=== PATIENT | female | born 1985 | race Caucasian/White ===

== ENCOUNTER 2017-11-25 00:39 | Emergency (ER) | payer BC ==
[2017-11-25] MEDS ORDERED: Ondansetron 4 MG/2 ML SDV IVPUSH ONE (01:31)
[2017-11-25] MEDS ORDERED: Ketorolac 30 MG/ML SDV IVPUSH ONE (01:31)
[2017-11-25] MEDS ORDERED: Sodium Chloride 0.9% 1,000 ML IV ONE (01:31)
[2017-11-25] MEDS ORDERED: Alum Hydroxide/Mag Hydroxide 30 ML, Lidocaine 2% 15 ML PO ONE ×2 (01:39)
--- NOTE | 2017-11-25 01:40 | EDM.PDOC ---
ED HPI GENERAL MEDICAL PROBLEM - General Chief Complaint: Abdominal Pain Stated Complaint: ABD PAIN Time Seen by Provider: 11/25/17 01:20 Source of Information: Reports: Patient History Limitations: Reports: No Limitations - History of Present Illness INITIAL COMMENTS - FREE TEXT/NARRATIVE: c/o upper abd pain x 9h h/o IBS, to ED x 2 in [place] with abd pain and dx with gastorenteritis h/o c/s x 1 and endometrioma 2007 removed with laparoscope pain continuous, getting worse, no radiation some N & V had diarrhea x 6, onset 3h ago, soft and formed and brown at chicken sandwich for lunch in [place] at noon, at a little spaghetti at 4 PM when pain started, only water this 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 with and 2 children who are not ill no f/c/d, no GRACIA, no cough did not get flu vax this yr moved back locally 1m ago Treatments RCIS: Reports: Other Medication(s) Upper abdomen Pain Score (Numeric/FACES): 7 - Related Data Allergies Allergy/AdvReac Type Severity Reaction Status Date / Time erythromycin base Allergy Stomach Verified 11/25/17 01:08 [From Erythrocin] Upset Home Meds: Home Meds Dicyclomine HCl [Bentyl] 10 mg PO QID #28 capsule 11/25/17 [Rx] Magnesium 250 mg PO BID 11/25/17 [History] ED ROS GENERAL - Review of Systems Review Of Systems: See Below Constitutional: Reports: No Symptoms. Denies: Fever, Chills, Weakness, Diaphoresis HEENT: Reports: No Symptoms Respiratory: Reports: No Symptoms Cardiovascular: Reports: No Symptoms Endocrine: Reports: No Symptoms GI/Abdominal: Reports: Abdominal Pain, Diarrhea, Nausea, Vomiting : Reports: No Symptoms Musculoskeletal: Reports: No Symptoms Skin: Reports: No Symptoms Neurological: Reports: No Symptoms Psychiatric: Reports: No Symptoms Hematologic/Lymphatic: Reports: No Symptoms Immunologic: Reports: No Symptoms ED EXAM, GI/ABD - Physical Exam Exam: See Below Exam Limited By: No Limitations General Appearance: Alert, WD/WN, Mild Distress, Other (thin) Eyes: Bilateral: Normal Appearance, EOMI Ears: Normal External Exam Nose: Normal Inspection, Normal Mucosa, No Blood Throat/Mouth: Normal Inspection, Normal Lips, Normal Teeth, Normal Gums, Normal Oropharynx, Normal Voice, No Airway Compromise Head: Atraumatic, Normocephalic Neck: Normal Inspection, Supple, Non-Tender, Full Range of Motion Respiratory/Chest: No Respiratory Distress, Lungs Clear, Normal Breath Sounds, No Accessory Muscle Use, Chest Non-Tender Cardiovascular: Regular Rate, Rhythm, No Edema, No Gallop, No Murmur, No Rub GI/Abdominal Exam: Normal Bowel Sounds, Soft, No Organomegaly, No Distention, No Mass, Other (nl to inc'd BS x 6, thin and soft abd, ND, easily palpable aorta of nl dimension, slight tender in suprapubic area and LLQ, NT across upper abd and at epigastrium and Henry's point, perhaps slight tender at periumbilical area, no HSM) Back Exam: Normal Inspection, Full Range of Motion, NT Extremities: Normal Inspection, Normal Range of Motion, Non-Tender, Normal Capillary Refill, No Pedal Edema Neurological: Alert, Oriented, CN II-XII Intact, Normal Cognition, No Motor/ Sensory Deficits Psychiatric: Normal Affect, Normal Mood Skin Exam: Warm, Dry, Intact, Normal Color, No Rash Lymphatic: No Adenopathy Course - Vital Signs Last Recorded V/S: Last Vital Signs Temp 36.7 C 11/25/17 00:55 Pulse 60 11/25/17 00:55 Resp 20 11/25/17 00:55 BP 101/58 L 11/25/17 00:55 Pulse Ox 100 11/25/17 00:55 - Orders/Labs/Meds Orders: Active Orders 24 hr Category Date Time Status LIPASE [REF] Stat Lab 11/25/17 01:50 Received Labs: Laboratory Tests 11/25/17 11/25/17 11/25/17 Range/Units 01:50 01:50 01:50 WBC 7.3 (4.5-12.0) X10-3/uL RBC 3.84 (3.23-5.20) x10(6)uL Hgb 11.2 L (11.5-15.5) g/dL Hct 33.7 (30.0-51.3) % MCV 87.8 (80-96) fL MCH 29.1 (27.7-33.6) pg MCHC 33.2 (32.2-35.4) g/dL RDW 11.8 (11.5-15.5) % Plt Count 252 (125-369) X10(3)uL MPV 7.9 (7.4-10.4) fL Neut % (Auto) 74.3 (46-82) % Lymph % (Auto) 17.7 (13-37) % [place] % (Auto) 7.2 (4-12) % Eos % (Auto) 1 (1.0-5.0) % Baso % (Auto) 0 (0-2) % Neut # (Auto) 5.5 (1.6-8.3) # Lymph # (Auto) 1.3 (0.6-5.0) # [place] # (Auto) 0.5 (0.0-1.3) # Eos # (Auto) 0.0 (0.0-0.8) # Baso # (Auto) 0.0 (0.0-0.2) # Sodium 140 (135-145) mmol/L Potassium 4.2 (3.5-5.3) mmol/L Chloride 104 (100-110) mmol/L Carbon Dioxide 29 (21-32) mmol/L BUN 10 (7-18) mg/dL Creatinine 0.6 (0.55-1.02) mg/dL Est Cr Clr Drug Dosing 113.52 mL/min Estimated GFR (MDRD) > 60 (>60) BUN/Creatinine Ratio 16.7 (9-20) Glucose 120 H (80-116) mg/dL Calcium 8.5 L (8.6-10.2) mg/dL Total Bilirubin 0.3 (0.1-1.3) mg/dL AST 12 (5-25) IU/L ALT 16 (12-36) U/L Alkaline Phosphatase 57 (56-112) IU/L C-Reactive Protein 2.4 H (0.5-0.9) mg/dL Total Protein 6.7 (6.0-8.0) g/dL Albumin 3.3 L (3.5-5.2) g/dL Globulin 3.4 g/dL Albumin/Globulin Ratio 1.0 Amylase (25-115) U/L Urine Color (YELLOW) Urine Appearance (CLEAR) Urine pH (5.0-6.5) Ur Specific [place] (1.010-1.025) Urine Protein (NEGATIVE) mg/dL Urine Glucose (UA) (NEGATIVE) mg/dL Urine Ketones (NEGATIVE) mg/dL Urine Occult Blood (NEGATIVE) Urine Nitrite (NEGATIVE) Urine Bilirubin (NEGATIVE) Urine Urobilinogen (NEGATIVE) mg/dL Ur Leukocyte Esterase (NEGATIVE) Urine RBC (0) Urine WBC (0) Ur Squamous Epith Cells (NS,R,O) Urine Bacteria (NS) 11/25/17 11/25/17 Range/Units 01:50 02:40 WBC (4.5-12.0) X10-3/uL RBC (3.23-5.20) x10(6)uL Hgb (11.5-15.5) g/dL Hct (30.0-51.3) % MCV (80-96) fL MCH (27.7-33.6) pg MCHC (32.2-35.4) g/dL RDW (11.5-15.5) % Plt Count (125-369) X10(3)uL MPV (7.4-10.4) fL Neut % (Auto) (46-82) % Lymph % (Auto) (13-37) % [place] % (Auto) (4-12) % Eos % (Auto) (1.0-5.0) % Baso % (Auto) (0-2) % Neut # (Auto) (1.6-8.3) # Lymph # (Auto) (0.6-5.0) # [place] # (Auto) (0.0-1.3) # Eos # (Auto) (0.0-0.8) # Baso # (Auto) (0.0-0.2) # Sodium (135-145) mmol/L Potassium (3.5-5.3) mmol/L Chloride (100-110) mmol/L Carbon Dioxide (21-32) mmol/L BUN (7-18) mg/dL Creatinine (0.55-1.02) mg/dL Est Cr Clr Drug Dosing mL/min Estimated GFR (MDRD) (>60) BUN/Creatinine Ratio (9-20) Glucose (80-116) mg/dL Calcium (8.6-10.2) mg/dL Total Bilirubin (0.1-1.3) mg/dL AST (5-25) IU/L ALT (12-36) U/L Alkaline Phosphatase (56-112) IU/L C-Reactive Protein (0.5-0.9) mg/dL Total Protein (6.0-8.0) g/dL Albumin (3.5-5.2) g/dL Globulin g/dL Albumin/Globulin Ratio Amylase 59 (25-115) U/L Urine Color Yellow (YELLOW) Urine Appearance Clear (CLEAR) Urine pH 6.5 (5.0-6.5) Ur Specific [place] 1.015 (1.010-1.025) Urine Protein Negative (NEGATIVE) mg/dL Urine Glucose (UA) Normal (NEGATIVE) mg/dL Urine Ketones Negative (NEGATIVE) mg/dL Urine Occult Blood Negative (NEGATIVE) Urine Nitrite Negative (NEGATIVE) Urine Bilirubin Negative (NEGATIVE) Urine Urobilinogen Normal (NEGATIVE) mg/dL Ur Leukocyte Esterase Negative (NEGATIVE) Urine RBC 0-5 (0) Urine WBC 0-5 (0) Ur Squamous Epith Cells Few H (NS,R,O) Urine Bacteria Few H (NS) Meds: Medications Discontinued Medications Generic Name Dose Route Start Last Admin Trade Name Freq PRN Reason Stop Dose Admin Al Hydroxide/Mg Hydroxide 30 0 ml 11/25/17 01:39 11/25/17 01:51 ml/ Lidocaine HCl 15 ml PO 11/25/17 01:40 15 ml ONETIME ONE Administration Sodium Chloride 1,000 mls @ 999 mls/hr 11/25/17 01:31 11/25/17 01:42 Normal Saline IV 11/25/17 02:31 999 mls/hr .BOLUS ONE Administration Ketorolac Tromethamine 30 mg 11/25/17 01:31 11/25/17 01:42 Toradol IVPUSH 11/25/17 01:32 30 mg ONETIME ONE Administration Ondansetron HCl 4 mg 11/25/17 01:31 11/25/17 01:44 Zofran IVPUSH 11/25/17 01:32 4 mg ONETIME ONE Administration - Re-Assessments/Exams Free Text/Narrative Re-Assessment/Exam: 11/25/17 03:11 CBC neg except hgb 11.2, pt says she usually is 14 CMP with glucose 120 and albumin 3.3 CRP 2.4 c/w gastroenteritis vs colitis pt reports her daughter was on TPN x 2y and had diverting ileostomy for eosinophilic Crohn's pt may need a colonoscopy pain dec'd from 8 to 4, still non localizing slight tender in mid abd Departure - Departure Time of Disposition: 03:13 Disposition: Home, Self-Care 01 Condition: Good Clinical Impression: Gastroenteritis, Mild anemia, Elevated C-reactive protein (CRP) - Discharge Information Prescriptions: Dicyclomine HCl [Bentyl] 10 mg PO QID #28 capsule Instructions: Viral Gastroenteritis, Adult, [id number], Colitis Referrals: Akash Perkins MD [Primary Care Provider] - Forms: ED Department Discharge Additional Instructions: For cramping, take dicyclomine 10 mg 1 tab 4 times a day for 7 days. For pain and inflammation, take ibuprofen 200 mg 3 tabs and acetaminophen 500 mg 2 tabs 4 times a day for 7 days. Increase fluids. Soak in warm water for 10 minutes several times a day as needed. Collect 3 stool specimens for Hemoccult cards. See your doctor in 2 days. Return to ED if you feel worse. Call your Physician or Return to Emergency Department if: * Your condition worsens in any way. * You develop fever greater than 100.4. * You have vomitting that does not stop with medications. * You have pain that is not controlled with medications. - My Orders Last 24 Hours: My Active Orders 11/25/17 01:50 LIPASE [REF] Stat - Assessment/Plan Last 24 Hours: My Active Orders 11/25/17 01:50 LIPASE [REF] Stat
[2017-11-25] MEDS ORDERED: Dicyclomine 10 MG Cap PO ONE (03:10)
== END 2017-11-25 03:40 | disposition home or self-care (01) ==
LOC: FB.ED 00:39
DX: K52.9 Noninfective gastroenteritis and colitis, unspecified (principal); D64.9 Anemia, unspecified; R79.82 Elevated C-reactive protein (CRP); Z88.1 Allergy status to other antibiotic agents; Z79.899 Other long term (current) drug therapy
CPT/HCPCS: 36415; 80053; 81001; 82150; 83690; 85025; 86140; 96361; 96374; 96375; 99284; A9270-GY; J1885; J2405; J7040

== ENCOUNTER 2017-11-27 21:23 | Emergency (ER) | payer BC ==
[2017-11-27] MEDS ORDERED: Sodium Chloride 0.9% 1,000 ML IV ONE (21:36)
[2017-11-27] MEDS ORDERED: Ondansetron 4 MG/2 ML SDV IVPUSH ONE (21:36)
--- NOTE | 2017-11-27 21:47 | EDM.PDOC ---
ED HPI GENERAL MEDICAL PROBLEM - General Stated Complaint: ABD PAIN Time Seen by Provider: 11/27/17 21:23 Source of Information: Reports: Patient History Limitations: Reports: No Limitations - History of Present Illness INITIAL COMMENTS - FREE TEXT/NARRATIVE: 32 y.o.w.f came to the ED witth N/V/D and periumbilical abdominal pain. Pt had similar symptoms on 11/25/2017. She was seen on that day here in the ED and received NS, Zofran and Bentyl. Pt denies forceful vomiting. Did not have a GI workup in the past. 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 No blood in stool or vomit. No F/C, pt lost weight, however. No other acute medical issues. BP 110/51 pulse 52 RR 18, O2 sat 100% on RA Temp 36.4 Onset Date: 11/26/17 Onset Time: 16:44 Location: Reports: Abdomen Quality: Reports: Burning, Dull, Same as Previous Episode Severity: Moderate Improves with: Reports: None Worsens with: Reports: Eating Context: Reports: Sick Contact Associated Symptoms: Reports: Nausea/Vomiting, Other (diarrhea) - Related Data Allergies Allergy/AdvReac Type Severity Reaction Status Date / Time erythromycin base Allergy Stomach Verified 11/27/17 23:55 [From Erythrocin] Upset Home Meds: Home Meds Dicyclomine HCl [Bentyl] 10 mg PO QID #28 capsule 11/25/17 [Rx] Magnesium 250 mg PO BID 11/25/17 [History] Past Medical History Gastrointestinal History: Reports: Gastritis, Irritable Bowel Syndrome Musculoskeletal History: Reports: Fracture Neurological History: Reports: Headaches, Chronic - Infectious Disease History Infectious Disease History: Reports: Chicken Pox - Past Surgical History HEENT Surgical History: Reports: Adenoidectomy, Tonsillectomy GI Surgical History: Reports: Colonoscopy Musculoskeletal Surgical History: Reports: Other (See Below) Other Musculoskeletal Surgeries/Procedures:: L 5th digit pinning. Social & Family History - Family History Family Medical History: Noncontributory - Tobacco Use Smoking Status *Q: Never Smoker - Caffeine Use Caffeine Use: Reports: Soda - Recreational Drug Use Recreational Drug Use: No ED ROS GENERAL - Review of Systems Review Of Systems: See Below Constitutional: Reports: No Symptoms HEENT: Reports: No Symptoms Respiratory: Reports: No Symptoms Cardiovascular: Reports: No Symptoms Endocrine: Reports: No Symptoms GI/Abdominal: Reports: Abdominal Pain (periumbilical) : Reports: No Symptoms Musculoskeletal: Reports: No Symptoms Skin: Reports: No Symptoms Neurological: Reports: No Symptoms Psychiatric: Reports: Agitation, Anxiety Hematologic/Lymphatic: Reports: No Symptoms Immunologic: Reports: No Symptoms ED EXAM, GI/ABD - Physical Exam Exam: See Below Exam Limited By: No Limitations General Appearance: Alert, WD/WN, Anxious, Mild Distress Eyes: Bilateral: Normal Appearance Ears: Normal External Exam Nose: Normal Inspection, Normal Mucosa Throat/Mouth: Normal Lips, Normal Gums, No Airway Compromise, Other (dry mucosal mme) Head: Atraumatic, Normocephalic Neck: Normal Inspection, Supple, Non-Tender, Full Range of Motion Respiratory/Chest: No Respiratory Distress, Lungs Clear, Normal Breath Sounds Cardiovascular: Normal Peripheral Pulses, Regular Rate, Rhythm, No Edema GI/Abdominal Exam: Normal Bowel Sounds, No Organomegaly, Tender (periumbilical tenderness) (Female) Exam: Deferred Rectal (Female) Exam: Deferred Back Exam: Normal Inspection, Full Range of Motion Extremities: Normal Inspection, Normal Range of Motion, Non-Tender, No Pedal Edema Neurological: Alert, Oriented, CN II-XII Intact, Normal Cognition, Normal Gait, No Motor/Sensory Deficits Psychiatric: Anxious Skin Exam: Warm, Dry, Intact, Normal Color, No Rash Lymphatic: No Adenopathy Course - Vital Signs Text/Narrative:: 32 y.o.w.f came to the ED witth N/V/D and periumbilical abdominal pain. Pt had similar symptoms on 11/25/2017. She was seen on that day here in the ED and received NS, Zofran and Bentyl. Pt denies forceful vomiting. Did not have a GI workup in the past. 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 No blood in stool or vomit. No F/C, pt lost weight, however. No other acute medical issues. BP 110/51 pulse 52 RR 18, O2 sat 100% on RA Temp 36.4 PE: Cachectic 32 y.o.w.f with N/V and abd. pain and extreme anxious, no family present. Labs: CBC/BMP. UDA, HCG and UA all neg, small bili GLC 117 Impression: Gastroenteritis, Dehydration, perumbilical pain, cachexia. Tx: NS 2 liters, Zofran, Protronix,Toradol. Pt took bentyl [employer] C[employer] TOOL Reexam: Improved, pain was 5/10. She can tolerate it and wanted to go home. Plan: D/C with instructions Last Recorded V/S: Last Vital Signs Temp 36.5 C 11/27/17 23:10 Pulse 48 L 11/27/17 23:10 Resp 16 11/27/17 23:10 BP 109/63 11/27/17 23:10 Pulse Ox 100 11/27/17 23:10 - Orders/Labs/Meds Labs: Laboratory Tests 11/27/17 11/27/17 11/27/17 Range/Units 21:50 21:50 21:50 WBC 8.0 (4.5-12.0) X10-3/uL RBC 3.99 (3.23-5.20) x10(6)uL Hgb 11.7 (11.5-15.5) g/dL Hct 34.9 (30.0-51.3) % MCV 87.4 (80-96) fL MCH 29.4 (27.7-33.6) pg MCHC 33.7 (32.2-35.4) g/dL RDW 11.8 (11.5-15.5) % Plt Count 233 (125-369) X10(3)uL MPV 8.3 (7.4-10.4) fL Neut % (Auto) 66.7 (46-82) % Lymph % (Auto) 22.0 (13-37) % [place] % (Auto) 9.3 (4-12) % Eos % (Auto) 2 (1.0-5.0) % Baso % (Auto) 0 (0-2) % Neut # (Auto) 5.3 (1.6-8.3) # Lymph # (Auto) 1.8 (0.6-5.0) # [place] # (Auto) 0.7 (0.0-1.3) # Eos # (Auto) 0.2 (0.0-0.8) # Baso # (Auto) 0.0 (0.0-0.2) # Sodium 140 (135-145) mmol/L Potassium 3.6 (3.5-5.3) mmol/L Chloride 103 (100-110) mmol/L Carbon Dioxide 28 (21-32) mmol/L BUN 10 (7-18) mg/dL Creatinine 0.7 (0.55-1.02) mg/dL Est Cr Clr Drug Dosing TNP Estimated GFR (MDRD) > 60 (>60) BUN/Creatinine Ratio 14.3 (9-20) Glucose 117 H (80-116) mg/dL Calcium 8.7 (8.6-10.2) mg/dL Magnesium 2.0 (1.8-2.5) mg/dL Total Bilirubin 0.2 (0.1-1.3) mg/dL Direct Bilirubin 0.07 L (0.10-0.20) mg/dL AST 13 (5-25) IU/L ALT 14 D (12-36) U/L Alkaline Phosphatase 61 (56-112) IU/L Total Protein 6.9 (6.0-8.0) g/dL Albumin 3.5 (3.5-5.2) g/dL Amylase 60 (25-115) U/L HCG, Quant < 1 L (<5) mIU/mL Urine Color (YELLOW) Urine Appearance (CLEAR) Urine pH (5.0-6.5) Ur Specific [place] (1.010-1.025) Urine Protein (NEGATIVE) mg/dL Urine Glucose (UA) (NEGATIVE) mg/dL Urine Ketones (NEGATIVE) mg/dL Urine Occult Blood (NEGATIVE) Urine Nitrite (NEGATIVE) Urine Bilirubin (NEGATIVE) Urine Urobilinogen (NEGATIVE) mg/dL Ur Leukocyte Esterase (NEGATIVE) Urine RBC (0) Urine WBC (0) Ur Squamous Epith Cells (NS,R,O) Urine Bacteria (NS) Urine Mucus (NS) Urine Opiates Screen (NEGATIVE) Ur Oxycodone Screen (NEGATIVE) Ur Propoxyphene Screen (NEGATIVE) Ur Barbituates Screen (NEGATIVE) Ur Tricyclics Screen (NEGATIVE) Ur Phencyclidine Scrn (NEGATIVE) Ur Amphetamine Screen (NEGATIVE) Urine MDMA Screen (NEGATIVE) U Benzodiazepines Scrn (NEGATIVE) U Cocaine Metab Screen (NEGATIVE) U Marijuana (THC) Screen (NEGATIVE) 11/27/17 11/27/17 Range/Units 22:22 22:22 WBC (4.5-12.0) X10-3/uL RBC (3.23-5.20) x10(6)uL Hgb (11.5-15.5) g/dL Hct (30.0-51.3) % MCV (80-96) fL MCH (27.7-33.6) pg MCHC (32.2-35.4) g/dL RDW (11.5-15.5) % Plt Count (125-369) X10(3)uL MPV (7.4-10.4) fL Neut % (Auto) (46-82) % Lymph % (Auto) (13-37) % [place] % (Auto) (4-12) % Eos % (Auto) (1.0-5.0) % Baso % (Auto) (0-2) % Neut # (Auto) (1.6-8.3) # Lymph # (Auto) (0.6-5.0) # [place] # (Auto) (0.0-1.3) # Eos # (Auto) (0.0-0.8) # Baso # (Auto) (0.0-0.2) # Sodium (135-145) mmol/L Potassium (3.5-5.3) mmol/L Chloride (100-110) mmol/L Carbon Dioxide (21-32) mmol/L BUN (7-18) mg/dL Creatinine (0.55-1.02) mg/dL Est Cr Clr Drug Dosing Estimated GFR (MDRD) (>60) BUN/Creatinine Ratio (9-20) Glucose (80-116) mg/dL Calcium (8.6-10.2) mg/dL Magnesium (1.8-2.5) mg/dL Total Bilirubin (0.1-1.3) mg/dL Direct Bilirubin (0.10-0.20) mg/dL AST (5-25) IU/L ALT (12-36) U/L Alkaline Phosphatase (56-112) IU/L Total Protein (6.0-8.0) g/dL Albumin (3.5-5.2) g/dL Amylase (25-115) U/L HCG, Quant (<5) mIU/mL Urine Color Yellow (YELLOW) Urine Appearance Clear (CLEAR) Urine pH 5.0 (5.0-6.5) Ur Specific [place] 1.015 (1.010-1.025) Urine Protein Negative (NEGATIVE) mg/dL Urine Glucose (UA) Normal (NEGATIVE) mg/dL Urine Ketones 15 H (NEGATIVE) mg/dL Urine Occult Blood Negative (NEGATIVE) Urine Nitrite Negative (NEGATIVE) Urine Bilirubin Small H (NEGATIVE) Urine Urobilinogen Normal (NEGATIVE) mg/dL Ur Leukocyte Esterase Negative (NEGATIVE) Urine RBC 0-5 (0) Urine WBC 0-5 (0) Ur Squamous Epith Cells Few H (NS,R,O) Urine Bacteria Rare H (NS) Urine Mucus Moderate H (NS) Urine Opiates Screen Negative (NEGATIVE) Ur Oxycodone Screen Negative (NEGATIVE) Ur Propoxyphene Screen Negative (NEGATIVE) Ur Barbituates Screen Negative (NEGATIVE) Ur Tricyclics Screen Negative (NEGATIVE) Ur Phencyclidine Scrn Negative (NEGATIVE) Ur Amphetamine Screen Negative (NEGATIVE) Urine MDMA Screen Negative (NEGATIVE) U Benzodiazepines Scrn Negative (NEGATIVE) U Cocaine Metab Screen Negative (NEGATIVE) U Marijuana (THC) Screen Negative (NEGATIVE) Meds: Medications Discontinued Medications Generic Name Dose Route Start Last Admin Trade Name Freq PRN Reason Stop Dose Admin Sodium Chloride 1,000 mls @ 999 mls/hr 11/27/17 21:36 11/27/17 21:54 Normal Saline IV 11/27/17 22:36 999 mls/hr .BOLUS ONE Administration Ketorolac Tromethamine 30 mg 11/27/17 22:12 11/27/17 22:23 Toradol IVPUSH 11/27/17 22:13 30 mg ONETIME ONE Administration Ondansetron HCl 8 mg 11/27/17 21:36 11/27/17 21:55 Zofran IVPUSH 11/27/17 21:37 8 mg ONETIME ONE Administration Ondansetron HCl 16 mg 11/27/17 23:06 Zofran Odt PO 11/27/17 23:07 .STK-MED ONE Pantoprazole Sodium 40 mg 11/27/17 22:17 11/27/17 22:30 Protonix Iv IVPUSH 11/27/17 22:18 40 mg ONETIME STA Administration Pantoprazole Sodium 80 mg 11/27/17 23:06 Protonix PO 11/27/17 23:07 .STK-MED ONE Departure - Departure Time of Disposition: 23:04 Disposition: Home, Self-Care 01 Condition: Good Clinical Impression: Gastroenteritis, Dehydration - Discharge Information Instructions: Ondansetron tablets, Pantoprazole tablets Referrals: PCP,None [Primary Care Provider] - Forms: ED Department Discharge Additional Instructions: Please advance diet as tolerated, please take Zofran and protonic as recommended , 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
[2017-11-27] MEDS ORDERED: Ketorolac 30 MG/ML SDV IVPUSH ONE (22:12)
[2017-11-27] MEDS ORDERED: Pantoprazole 40 MG Vial IVPUSH STA (22:17)
[2017-11-27] MEDS ORDERED: Ondansetron 4 MG Tab.DIS PO ONE (23:06)
[2017-11-27] MEDS ORDERED: Pantoprazole 40 MG Tab.CR PO ONE (23:06)
== END 2017-11-27 23:25 | disposition home or self-care (01) ==
LOC: FB.ED 21:23
DX: K52.9 Noninfective gastroenteritis and colitis, unspecified (principal); E86.0 Dehydration; Z88.1 Allergy status to other antibiotic agents
CPT/HCPCS: 36415; 80048; 80076; 80305; 81001; 82150; 83735; 84702; 85025; 96361; 96374; 96375; 99283; A9270; C9113; J1885; J2405; J7040